=== PATIENT | male | born 1955 | race Two or more races ===

== ENCOUNTER 2021-06-19 10:14 | Outpatient (REF) | payer MEDICARE, OTHER, SELFPAY ==
[2021-06-19 10:38] LABS: MANUAL DIFF FLAG NO
[2021-06-19 10:54] LABS: Basophils Absolute Auto 0.1 X10*3/uL (0.0-0.2); Basophils Percent Auto 0.6 % (0-2); Eosinophils Absolute Auto 1.6 X10*3/uL (0.0-0.4); Eosinophils Percent Auto 19.2 % (0-4); Hematocrit 43.9 % (42.0-52.0); Hemoglobin 14.3 g/dl (14.0-18.0); Imm Gran Abs Auto 0.02 X10*3/uL (0.00-0.03); Imm Gran Pct Auto 0.2 % (0.0-0.4); Lymphocytes Absolute Auto 2.4 X10*3/uL (1.2-4.9); Lymphocytes Percent Auto 28.7 % (20-40); Mean Corpuscular HGB Conc 32.6 g/dl (31.0-36.0); Mean Corpuscular Hemoglobin 28.9 pg (27.0-33.0); Mean Corpuscular Volume 88.7 fL (80.0-98.0); Mean Platelet Volume 10.9 fL (9.4-12.4); Monocytes Absolute Auto 0.6 X10*3/uL (0.1-1.2); Monocytes Percent Auto 7.5 % (2-11); Neutrophils Absolute Auto 3.7 x10*3/uL (2.0-8.3); Neutrophils Percent Auto 43.8 % (45-73); Platelet Count 208 X10*3/uL (160-400); Red Blood Count 4.95 X10*6/uL (4.60-5.80); Red Cell Distribution Width 12.4 % (11.0-16.0); White Blood Count 8.4 X10*3/uL (4.8-10.8)
[2021-06-19 11:19] LABS: Estimated Average Glucose 137 mg/dL; Hemoglobin A1c % 6.4 %
[2021-06-19 11:26] LABS: Alanine Aminotransferase 12 U/L (0-40); Albumin Level 4.3 g/dL (3.5-5.0); Alkaline Phosphatase 58 U/L (39-117); Anion Gap 12 (12-20); Aspartate Amino Transferase 16 U/L (5-37); Bilirubin Total 0.9 mg/dL (0.0-1.0); Blood Urea Nitrogen 15 mg/dL (9-16); Calcium 9.7 mg/dL (8.4-10.2); Carbon Dioxide 27 mmol/L (22-29); Chloride 106 mmol/L (96-108); Cholesterol 118 mg/dL; Estimated Glomerular Filt Rate 56; Glucose Fasting 141 mg/dL (60-99); HDL Cholesterol 36 mg/dL; LDL Cholesterol Calculated 68 mg/dl; Potassium 4.7 mmol/L (3.3-5.1); Sodium 140 mmol/L (135-145); Total Protein 7.3 g/dL (6.5-8.0); Triglycerides 72 mg/dL
[2021-06-19 11:37] LABS: Prostate Specific Antigen Scr 0.81 ng/mL (<0.05-4.0)
[2021-06-19 11:44] LABS: Creatinine Urine 155.97 mg/dL; Microalbum/Creatinine Ratio Ur 3.8 ug/mg cr
== END 2021-06-19 10:15 | disposition home or self-care (01) ==
LOC: HO.LAB 10:14
PROVIDERS: PCP Nurse Practitioner Family; Visit Provider Nurse Practitioner Family
DX: E11.9 Type 2 diabetes mellitus without complications (principal); E78.5 Hyperlipidemia, unspecified; I10 Essential (primary) hypertension; E78.00 Pure hypercholesterolemia, unspecified; Z76.89 Persons encountering health services in other specified circumstances; Z12.5 Encounter for screening for malignant neoplasm of prostate
CPT/HCPCS: 36415; 80053; 80061; 82043; 83036; 84153; 85025

== ENCOUNTER 2022-03-23 09:07 | Outpatient (REF) | payer MEDICARE, OTHER, SELFPAY ==
[2022-03-23 11:15] LABS: Alanine Aminotransferase 15 U/L (0-40); Albumin Level 4.3 g/dL (3.5-5.0); Alkaline Phosphatase 56 U/L (39-117); Anion Gap 12 (12-20); Aspartate Amino Transferase 19 U/L (5-37); Blood Urea Nitrogen 22 mg/dL (9-16); Calcium 9.2 mg/dL (8.4-10.2); Carbon Dioxide 28 mmol/L (22-29); Chloride 105 mmol/L (96-108); Cholesterol 159 mg/dL; Estimated Glomerular Filt Rate > 60; Glucose Fasting 134 mg/dL (60-99); HDL Cholesterol 37 mg/dL; LDL Cholesterol Calculated 97 mg/dl; Potassium 4.2 mmol/L (3.3-5.1); Sodium 141 mmol/L (135-145); Total Protein 7.1 g/dL (6.5-8.0); Triglycerides 125 mg/dL
[2022-03-23 11:19] LABS: Microalbum/Creatinine Ratio Ur 5.6 ug/mg cr
[2022-03-23 11:20] LABS: Vitamin D 25-OH Total 18.7 ng/mL (>30)
== END 2022-03-23 09:08 | disposition home or self-care (01) ==
LOC: HO.LAB 09:07
PROVIDERS: PCP Internal Medicine; Visit Provider Internal Medicine
DX: E11.9 Type 2 diabetes mellitus without complications (principal); E78.5 Hyperlipidemia, unspecified; E55.9 Vitamin D deficiency, unspecified
CPT/HCPCS: 36415; 80053; 80061; 82043; 82306

== ENCOUNTER 2022-08-10 09:22 | Outpatient (REF) | payer MEDICARE, OTHER, SELFPAY ==
[2022-08-10 10:27] LABS: Microalbumin Urine < 5.0 mg/L
[2022-08-10 11:58] LABS: Alanine Aminotransferase 9 U/L (0-40); Albumin Level 4.2 g/dL (3.5-5.0); Alkaline Phosphatase 48 U/L (39-117); Anion Gap 10 (12-20); Aspartate Amino Transferase 15 U/L (5-37); Bilirubin Total 0.9 mg/dL (0.0-1.0); Blood Urea Nitrogen 17 mg/dL (9-16); Calcium 9.6 mg/dL (8.4-10.2); Carbon Dioxide 28 mmol/L (22-29); Chloride 106 mmol/L (96-108); Cholesterol 131 mg/dL; Estimated Glomerular Filt Rate 58; Glucose Fasting 126 mg/dL (60-99); HDL Cholesterol 38 mg/dL; LDL Cholesterol Calculated 79 mg/dl; Potassium 4.1 mmol/L (3.3-5.1); Sodium 140 mmol/L (135-145); Total Protein 7.4 g/dL (6.5-8.0); Triglycerides 72 mg/dL
[2022-08-10 12:19] LABS: Vitamin D 25-OH Total 37.2 ng/mL (>30)
== END 2022-08-10 09:23 | disposition home or self-care (01) ==
LOC: HO.LAB 09:22
PROVIDERS: PCP Internal Medicine; Visit Provider Internal Medicine
DX: E78.5 Hyperlipidemia, unspecified (principal); E11.9 Type 2 diabetes mellitus without complications; E55.9 Vitamin D deficiency, unspecified
CPT/HCPCS: 36415; 80053; 80061; 82043; 82306

== ENCOUNTER 2022-08-26 09:46 | Outpatient (AMB) | payer MEDICARE, SELFPAY ==
[2022-08-26 09:52] VITALS: BP 128/70; BMI 28.3
--- NOTE | 2022-08-26 09:52 | MHC.PC.OV ---
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: No Accompanied by: Spouse Allergies Penicillins Allergy (Intermediate, Verified 08/26/22 10:01) Diarrhea, itchy, red spots atorvastatin Adverse Reaction (Severe, Verified 08/26/22 10:01) pain Medication List - Last Reconciled 08/26/22 by Darcy Mike MD blood sugar diagnostic (FreeStyle Lite Strips) Use 1 test strip once a day cholecalciferol (vitamin D3) 50 mcg PO DAILY 90 days lancets (FreeStyle Lancets) Use 1 lancet once a day lisinopril 20 mg PO DAILY 90 days metformin 1,000 mg PO BID 90 days omeprazole 20 mg PO DAILY 90 days simvastatin 10 mg PO BEDTIME 90 days tamsulosin 0.4 mg PO DAILY 90 days Tobacco use date assessed: 04/08/22 Fall risk assessment: 1 Fall in past year Last assessed Fall Risk: 08/26/22 Dental Screening Dental Screen Date: 08/26/22 Did you have a dental visit in the last 12 months?: Yes Did you have a dental problem in the last 6 months where you did not have access to dental care?: No Was dental information given to patient?: Patient has dentist HPI HPI Comments History of Present Illness Details This is a 66-year-old male with diabetes mellitus type 2, hypertension, hyperlipidemia, GERD that comes today accompanied by female partner for follow-up on his conditions. A1c within goal. Blood pressure within goal. LDL has improved and is very close to goal. GERD still present with omeprazole and this is why I will change it to pantoprazole. No chest pain or shortness of breath. Diabetic eye exam was few months ago in [place]. PFSH Surgical History Hx of inguinal hernia surgery Family History Father Hypertension Diabetes mellitus Renal failure (ARF), acute on chronic Mother Myocardial infarction Social History Housing: House Alcohol intake: current Alcohol intake frequency: holidays/special occasions only Alcohol type: beer Patient Tobacco Use Status: Former Tobacco user Tobacco use type: Cigarette e-Cigarette/Vaping Use: Never Used Second Hand Smoke Exposure: No service: Yes Current occupational status: retired Cognitive needs: No Hearing needs: No Vision needs: Yes (reading glasses) Questionnaire Thrive Questionnaire Date Thrive assessed: 04/08/22 MJ-7 AMB Questionnaire MJ-7 Date MJ - 7 assessed: 04/08/22 Source: Developed by Drs. Sandor Bowling, Saundra Nye, Petar Larry and colleagues, with an educational damian from [employer]. Review of Systems Const All systems reviewed & are unremarkable except as noted in HPI and below Eyes Reports no additional complaints, Denies change in vision and Denies other visual disturbances Card Denies chest pain at rest, Denies chest pain with activity, Denies edema, Denies irregular heart rhythm, Denies claudication, Denies dyspnea, Denies dyspnea on exertion, Denies orthopnea, Denies paroxysmal nocturnal dyspnea and Denies slow heart rate Resp Denies cough, Denies dyspnea and Denies dyspnea on exertion GI Denies abdominal pain, Denies change in bowel habits, Denies excessive flatus, Denies nausea and Denies vomiting Denies urinary hesitancy, Denies urinary incontinence and Denies urinary urgency Musc Denies abnormal gait, Denies atrophy, Denies deformity and Denies limited range of motion Skin/Breast Denies bleeding lesions, Denies changing lesions and Denies rash Neuro Denies abnormal gait and Denies lack of coordination Physical exam (Primary Care) Vital Signs: Last Vital Signs BP 128/70 08/26/22 09:52 BMI result Body Mass Index 28.3 Tobacco/Smoking Status: Tobacco use Status Tobacco use date assessed 04/08/22 08/26/22 09:54 Patient Tobacco Use Status Former Tobacco user 08/26/22 09:54 Tobacco use type Cigarette 08/26/22 09:54 e-Cigarette/Vaping Use Never Used 08/26/22 09:54 Thrive Assessment: Date of Thrive Assessment Date Thrive assessed 04/08/22 08/26/22 09:54 Eyes General: appearance normal, both eyes and all related structures Eyelids: Yes eyelids normal Conjunctivae: conjunctivae normal Neck Neck: Yes normal visual inspection and Yes supple Resp Effort & Inspection: normal respiratory effort Auscultation: clear to auscultation bilaterally Cardio Jugular venous distension: no JVD Rate: regular rate Rhythm: regular rhythm Heart sounds: S1 normal heart sound present and S2 normal heart sound present Extrem General: Yes full ROM Results AMB Hemoglobin A1c AMB Hemoglobin A1c 6.1 % Last Edit by VALDO Santo on 08/26/22 10:03 Assessment and Plan Assessment & Plan (1) Diabetes type 2, controlled: Onset Date: ~2005 Code(s): E11.9 - Type 2 diabetes mellitus without complications Plan: Continue metformin. A1c goal is equal or less than 7%. (2) Hyperlipidemia: Code(s): E78.5 - Hyperlipidemia, unspecified Plan: Continue statins. LDL goal is less than 70. (3) GERD (gastroesophageal reflux disease): Code(s): K21.9 - Gastro-esophageal reflux disease without esophagitis Plan: Discontinue omeprazole. Start pantoprazole. (4) Essential (primary) hypertension: Code(s): I10 - Essential (primary) hypertension Plan: Continue lisinopril. Blood pressure goal is equal or less than 130/80. Orders: Orders Comprehensive [place]. Panel Fast 4 Months E11.9 - Type 2 diabetes mellitus without complications Lipid Panel 4 Months E78.5 - Hyperlipidemia, unspecified Microalbumin, Random (w Creat) 4 Months E11.9 - Type 2 diabetes mellitus without complications Vitamin D 25-OH Total 4 Months E55.9 - Vitamin D deficiency, unspecified AMB Hemoglobin A1c Today E11.9 - Type 2 diabetes mellitus without complications Medications: New pantoprazole 40 mg PO DAILY 90 days 90 tabs 1RF K21.9 - Gastro-esophageal reflux disease without esophagitis Ventolin HFA 90 mcg/actuation (albuterol sulfate) 2 puffs inhalation Q6H 30 days PRN 18 grams 2RF shortness of breath or wheezing NS Refilled lisinopril 20 mg PO DAILY 90 days 90 tabs 3RF I10 - Essential (primary) hypertension cholecalciferol (vitamin D3) 50 mcg PO DAILY 90 days 90 caps 1RF metformin 1,000 mg PO BID 90 days 180 tabs 3RF E11.9 - Type 2 diabetes mellitus without complications simvastatin 10 mg PO BEDTIME 90 days 90 tabs 1RF E78.5 - Hyperlipidemia, unspecified tamsulosin 0.4 mg PO DAILY 90 days 90 caps 1RF N40.1 - Benign prostatic hyperplasia with lower urinary tract symptoms, R35.1 - Nocturia Discontinued omeprazole Discontinued Reason: Patient Completed Course 20 mg PO DAILY 90 days 90 caps 0RF K21.9 - Gastro-esophageal reflux disease without esophagitis Coding Level of Care Code Est Pt Level 4 (71172) Diagnoses Diabetes type 2, controlled E11.9 Hyperlipidemia E78.5 GERD (gastroesophageal reflux disease) K21.9 Essential (primary) hypertension I10 Time Spent (min) 21
== END 2022-08-26 10:13 | disposition home or self-care (01) ==
PROVIDERS: Visit Provider Internal Medicine
DX: E11.9 Type 2 diabetes mellitus without complications (principal); E78.5 Hyperlipidemia, unspecified; K21.9 Gastro-esophageal reflux disease without esophagitis; I10 Essential (primary) hypertension
CPT/HCPCS: 83036; 99214

== ENCOUNTER 2022-11-30 09:29 | Outpatient (REF) | payer MEDICARE, OTHER, SELFPAY ==
[2022-11-30 12:10] LABS: Creatinine Urine 69.51 mg/dL; Microalbumin Urine < 5.0 mg/L
[2022-11-30 12:53] LABS: Alanine Aminotransferase 14 U/L (0-40); Albumin Level 4.3 g/dL (3.5-5.0); Alkaline Phosphatase 48 U/L (39-117); Anion Gap 13 (12-20); Aspartate Amino Transferase 17 U/L (5-37); Bilirubin Total 0.7 mg/dL (0.0-1.0); Blood Urea Nitrogen 16 mg/dL (9-16); Calcium 9.7 mg/dL (8.4-10.2); Carbon Dioxide 28 mmol/L (22-29); Chloride 105 mmol/L (96-108); Cholesterol 127 mg/dL (<200); Estimated Glomerular Filt Rate > 60; Glucose Fasting 127 mg/dL (60-99); HDL Cholesterol 37 mg/dL (>40); LDL Cholesterol Calculated 71 mg/dL (<100); Potassium 4.6 mmol/L (3.3-5.1); Sodium 141 mmol/L (135-145); Total Protein 7.6 g/dL (6.5-8.0); Triglycerides 95 mg/dL (<150)
== END 2022-11-30 09:30 | disposition home or self-care (01) ==
LOC: HO.LAB 09:29
PROVIDERS: PCP Internal Medicine; Visit Provider Internal Medicine
DX: E11.9 Type 2 diabetes mellitus without complications (principal); E55.9 Vitamin D deficiency, unspecified; E78.5 Hyperlipidemia, unspecified
CPT/HCPCS: 36415; 80053; 80061; 82043; 82306; 82570

== ENCOUNTER 2022-12-21 07:11 | Outpatient (AMB) | payer MEDICARE, SELFPAY ==
--- NOTE | 2022-12-21 07:27 | MHC.PC.OV ---
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: No Accompanied by: Significant Other Allergies Penicillins Allergy (Intermediate, Verified 12/21/22 07:41) Diarrhea, itchy, red spots atorvastatin Adverse Reaction (Severe, Verified 12/21/22 07:41) pain Medication List - Last Reconciled 12/21/22 by Darcy Mike MD blood sugar diagnostic (FreeStyle Lite Strips) Use 1 test strip once a day cholecalciferol (vitamin D3) 50 mcg PO DAILY 90 days lancets (FreeStyle Lancets) Use 1 lancet once a day lisinopril 20 mg PO DAILY 90 days metformin 1,000 mg PO BID 90 days pantoprazole 40 mg PO DAILY 90 days simvastatin 10 mg PO BEDTIME 90 days tamsulosin 0.4 mg PO DAILY 90 days Tobacco use date assessed: 04/08/22 Fall risk assessment: 1 Fall in past year Last assessed Fall Risk: 12/21/22 Dental Screening Dental Screen Date: 12/21/22 Did you have a dental visit in the last 12 months?: No Did you have a dental problem in the last 6 months where you did not have access to dental care?: No Was dental information given to patient?: Patient has dentist HPI HPI Comments History of Present Illness Details This is a 67-year-old male with diabetes mellitus type 2 that comes today accompanied by female partner for his physical exam. A1c within goal. LDL close to goal. Last diabetic eye exam was at [facility] in 12/09/2022 which revealed no diabetic retinopathy. Last colonoscopy was [facility] 3 years ago and was normal and next colonoscopy should be 2029. Complains of diffuse joint pain and daily headaches in frontal area with no neurological deficit does started about 3 months ago. No fever or rash. Also has right leg pain that started few weeks ago and ultrasound will be done to rule out DVT. Also has history of right inguinal hernia repair and feel a right inguinal lump with pain. [facility] Surgical History (Updated 12/21/22 @ 07:43 by Darcy Mike MD) H/O colonoscopy Hx of inguinal hernia surgery Family History Father Hypertension Diabetes mellitus Renal failure (ARF), acute on chronic Mother Myocardial infarction Social History Housing: House Alcohol intake: current Alcohol intake frequency: holidays/special occasions only Alcohol type: beer Patient Tobacco Use Status: Former Tobacco user Tobacco use type: Cigarette e-Cigarette/Vaping Use: Never Used Second Hand Smoke Exposure: No service: Yes Current occupational status: retired Cognitive needs: No Hearing needs: No Vision needs: Yes (reading glasses) Questionnaire Thrive Questionnaire Date Thrive assessed: 04/08/22 MJ-7 AMB Questionnaire MJ-7 Date MJ - 7 assessed: 04/08/22 Source: Developed by Drs. Sandor Bowling, Saundra Nye, Petar Larry and colleagues, with an educational damian from [employer]. Review of Systems Const All systems reviewed & are unremarkable except as noted in HPI and below Reports headache(s) Eyes Reports no additional complaints, Denies change in vision and Denies other visual disturbances ENT Reports headache(s) Card Denies chest pain at rest, Denies chest pain with activity, Denies edema, Denies irregular heart rhythm, Denies claudication, Denies dyspnea, Denies dyspnea on exertion, Denies orthopnea, Denies paroxysmal nocturnal dyspnea and Denies slow heart rate Resp Denies cough, Denies dyspnea and Denies dyspnea on exertion GI Reports abdominal pain, Denies change in bowel habits, Denies excessive flatus, Denies nausea and Denies vomiting Denies urinary hesitancy, Denies urinary incontinence and Denies urinary urgency Musc Denies abnormal gait, Denies atrophy, Denies deformity, Reports arthralgias and Denies limited range of motion Skin/Breast Denies bleeding lesions, Denies changing lesions and Denies rash Neuro Denies abnormal gait, Denies behavioral changes, Denies confusion, Reports headache(s) and Denies lack of coordination Psych Denies behavioral changes and Denies confusion Physical exam (Primary Care) Vital Signs: Last Vital Signs BP 132/80 12/21/22 07:28 BMI result Body Mass Index 26.8 Tobacco/Smoking Status: Tobacco use Status Tobacco use date assessed 04/08/22 12/21/22 07:33 Patient Tobacco Use Status Former Tobacco user 12/21/22 07:33 Tobacco use type Cigarette 12/21/22 07:33 e-Cigarette/Vaping Use Never Used 12/21/22 07:33 Thrive Assessment: Date of Thrive Assessment Date Thrive assessed 04/08/22 12/21/22 07:33 Const General: No confusion Orientation/consciousness: patient oriented x3 and No confusion HENMT Head: Yes normal to inspection, Yes normocephalic and Yes atraumatic Ears: external ears normal Eyes General: appearance normal, both eyes and all related structures Eyelids: Yes eyelids normal Conjunctivae: conjunctivae normal Neck Neck: Yes normal visual inspection and Yes supple Resp Effort & Inspection: normal respiratory effort Auscultation: clear to auscultation bilaterally Cardio Jugular venous distension: no JVD Rate: regular rate Rhythm: regular rhythm Heart sounds: S1 normal heart sound present and S2 normal heart sound present GI Inspection: Yes normal to inspection Palpation (GI): Soft to palpation, nontender and Hernia present indirect inguinal on the right Auscultation: normal bowel sounds Skin General skin exam: no rashes or lesions noted Neuro General: patient oriented x3, no focal motor deficits and No confusion Extrem General: Yes full ROM Psych Appearance: grossly normal Office Procedures Flu Questionnaire Does the patient have a severe egg allergy?: No Results AMB Hemoglobin A1c AMB Hemoglobin A1c 6.0 % Last Edit by VALDO Santo on 12/21/22 07:44 Immunizations flu vacc [id number] 6mos up(PF) 60 mcg(15 mcgx4)/0.5 mL IM syringe Performing Provider: Darcy Mike MD [facility] [place] Documented (not given) by: VALDO Santo on 12/21/22 07:43 Reason Not Given: Patient Refused Results Reviewed Results Reviewed: Laboratory Last Values Hgb A1c (Clinic) 6.0 % (4.0-6.0) 12/21/22 07:33 Assessment and Plan Assessment & Plan (1) Physical exam: Code(s): Z00.00 - Encounter for general adult medical examination without abnormal findings Plan: Repeat in a year (2) Diabetes type 2, controlled: Onset Date: ~2005 Code(s): E11.9 - Type 2 diabetes mellitus without complications Plan: Continue metformin. A1c goal is equal or less than 7%. Orders: Orders AMB Hemoglobin A1c Today E11.9 - Type 2 diabetes mellitus without complications Influenza [id number] Immunization Today E11.9 - Type 2 diabetes mellitus without complications Vitamin D 25-OH Total 4 Months E55.9 - Vitamin D deficiency, unspecified US venous duplex LE RT Today M79.604 - Pain in right leg US abdomen complete Today K40.90 - Unilateral inguinal hernia, without obstruction or gangrene, not specified as recurrent Lipid Panel 4 Months E78.5 - Hyperlipidemia, unspecified Microalbumin, Random (w Creat) 4 Months E11.9 - Type 2 diabetes mellitus without complications Comprehensive [place]. Panel Fast 4 Months Z00.00 - Encounter for general adult medical examination without abnormal findings Referrals Rheumatology Referral M25.50 - Pain in unspecified joint Neurology Referral R51.9 - Headache, unspecified Coding Level of Care Code Est Pt Prev Care >65y(54326) Diagnoses Physical exam Z00.00 Diabetes type 2, controlled E11.9 Time Spent (min) 36
[2022-12-21 07:28] VITALS: BP 132/80; BMI 26.8
== END 2022-12-21 08:06 | disposition home or self-care (01) ==
PROVIDERS: Visit Provider Internal Medicine
DX: Z00.00 Encounter for general adult medical examination without abnormal findings (principal); E11.9 Type 2 diabetes mellitus without complications
CPT/HCPCS: 83036; 99397

== ENCOUNTER 2023-01-06 10:47 | Outpatient (AMB) | payer MEDICARE, SELFPAY ==
[2023-01-06 11:03] VITALS: BP 122/78; PULSE 74; TEMP 36.3; O2SAT 97; BMI 27.2
--- NOTE | 2023-01-06 11:03 | A.OFFVIS_ITS ---
Intake Vital Signs 01/06/23 11:03 Height 5 ft 8 in Weight 179 lb 3.773 oz BMI 27.2 BP 122/78 Blood Pressure Location Rt brachial Position Sitting Pulse 74 Pulse Source Pulse Oximeter Temp 97.3 F Temp Source Skin Pulse Oximetry (%) 97 Oxygen Delivery Method Room Air Intake Visit Reasons: Joint Pain Intake Note: New patient internally referred for joint pain. 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 C/o pain in right leg, pain radiates to hip and knee. Reports falling from the bed approx 8-10 weeks ago, pain started around the same time. Also c/o occasional headaches Or First Assist Registered Nurse Required: No Accompanied by: Significant Other Allergies Penicillins Allergy (Intermediate, Verified 01/06/23 11:06) Diarrhea, itchy, red spots atorvastatin Adverse Reaction (Severe, Verified 01/06/23 11:06) pain HPI HPI Comments History of Present Illness Details Mr. Daniel is a 67-year-old male with medical history of diabetes mellitus type 2 that comes today accompanied by female partner for evaluation of right knee pain. His right leg pain started few weeks ago after the activity of bending down and picking up leaves outside. His primary care has ordered an ultrasound will be done to rule out DVT. Also has history of right inguinal hernia repair and feel a right inguinal lump with pain. Patient all does also describe what seems like sciatica pain on his right gluteus pj. He denies red, warm swollen joints Patient denies Raynaud's phenomenon, butterfly rash on face or other rashes; denies photosensitivity - getting sick or developing a rash from being out in the sun; denies blood or froth in urine; patient denies hx of SOB, chest pain. Patient denies hx of Carditis or Pleuritis. Denies fevers, excessive fatigue, unexplained weight-loss or weight-gain, Denies: thinning hair or hair loss, hx of rashes; Denies: dry, itchy eyes, red burning eyes needing steroids to treat; dry mouth, mouth sores or ulcers; nose bleed; ringing in the ear, Denies abdominal pain, blood or mucous in stool; nausea, vomiting and diarrhea , difficulty swallowing, heartburn. Denies morning stiffness lasting more than 20 mins. Last colonoscopy was [facility] 3 years ago and was normal and next colonoscopy should be 2030. [facility] Medical History (Updated 01/06/23 @ 15:35 by Mariam Royal [facility]) Sciatica, right side Right knee pain Left knee pain Surgical History H/O colonoscopy Hx of inguinal hernia surgery Family History Father Hypertension Diabetes mellitus Renal failure (ARF), acute on chronic Mother Myocardial infarction Housing: House Alcohol intake: current Alcohol intake frequency: holidays/special occasions only Alcohol type: beer Patient Tobacco Use Status: Former Tobacco user Tobacco use type: Cigarette e-Cigarette/Vaping Use: Never Used Second Hand Smoke Exposure: No service: Yes Current occupational status: retired Cognitive needs: No Hearing needs: No Vision needs: Yes (reading glasses) Review of Systems Const All systems reviewed & are unremarkable except as noted in HPI and below Physical Exam Vital Signs: Last Vital Signs Temp 97.3 F 01/06/23 11:03 Pulse 74 01/06/23 11:03 BP 122/78 01/06/23 11:03 Pulse Ox 97 01/06/23 11:03 Oxygen Delivery Method Room Air 01/06/23 11:03 BMI result Body Mass Index 27.2 APPEARANCE: Patient in no acute distress EYES no redness, pupils equal and reactive to light, eyelids normal EARS:? External ear normal, canal clear and tympanic membrane normal. NOSE/SINUS:? Airflow through both nares, no nasal discharge, no bleeding THROAT:? Oral mucosa moist, no ulcerations NECK:? No thyromegaly or masses, no adenopathy, trachea midline. HEART:? Regulrar rhythm, S1-S2 heard, no murmurs, rubs or gallops. LUNG:? Clear to percussion and auscultation ABD:? Normal bowel sounds, no organomegaly, masses or tenderness. EXTREMITIES:? No edema, no calf tenderness, normal peripheral pulses. NEURO:? Oriented and alert x3.? No focal weakness.? Reflexes symmetric.? Gait normal. SKIN:? There are no skin lesions evident. No objective signs of Raynaud's phenomenon. JOINT EXAM: Cervical Spine:.? Full range of motion without pain; no tenderness. Thoracic Spine:.? No scoliosis.? No tenderness on palpation. Lumbar Spine:.? Alignment normal.? Full range of motion without pain, no tenderness. Chest Wall:.? No tenderness, swelling, increased warmth or erythema. Hands:.? Normal pain-free range of motion without tenderness, swelling, increased warmth or erythema. 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 Wrists:.? Normal pain-free range of motion without tenderness, swelling, increased warmth or erythema. Elbows:. Normal pain-free range of motion without tenderness, swelling, increased warmth or erythema. Shoulders:.?? Full range of motion without pain. No tenderness, weakness, swelling, increased warmth or erythema. Hips:.? Full range of motion without pain. Hip bursa:.? No tenderness. Mild tenderness to right Gluteus pj Knees:.?? Normal pain-free range of motion without tenderness, swelling, increased warmth or erythema.? There is no effusion or crepitation. Mild ten derness to lateral right knee Ankles:.? Normal pain-free range of motion without tenderness, swelling, increased warmth or erythema. Feet:.? Normal pain-free range of motion without tenderness, swelling, increased warmth or erythema. Assessment & Plan Assessment & Plan (1) Right knee pain: Code(s): M25.561 - Pain in right knee Qualifiers: Chronicity: chronic Qualified Code(s): M25.561 - Pain in right knee; G89.29 - Other chronic pain (2) Sciatica, right side: Code(s): M54.31 - Sciatica, right side Plan #Right knee pain: Mr. Daniel 67-year-old male here for evaluation of right knee pain. It does not appear at this time that his knee pain is caused by an inflammatory or autoimmune pathology. It appears that it may be a mild injury sustained while cleaning up the yard. The pain is localized to the lateral right knee and is more pronounced at the proximal fibula/head. Patient denies swelling warmth or redness to the joint. I will order x-rays to assessed. He should also follow through with the ultrasound that was ordered by his PCP to rule out DVT. I will also order labs to check for inflammatory markers and elements such as elevated uric acid which is doubtful at this time. #Right Sciatica: There is also tenderness to right gluteal muscle extending from the lower back. Given that there is tenderness on the right gluteus muscle, the sciatica could also be responsible to for the pain at this lateral side of the right knee down to the hayden. Once it is determined that there is no fracture or injury to the knee, I think patient will benefit from physical therapy to strengthen his lower body. The patient agrees with this plan. Orders: Orders C Reactive Protein Today M25.561 - Pain in right knee Erythrocyte Sedimentation Rate Today M25.561 - Pain in right knee Complete Blood Count no Diff Today M25.561 - Pain in right knee Rheumatoid Factor Today M25.561 - Pain in right knee Uric Acid Today M25.561 - Pain in right knee Cyclic Citrullinated Peptide Today M25.561 - Pain in right knee XR knee RT 3V Today M25.561 - Pain in right knee Coding Level of Care Code Est Pt Level 3 (21917) Diagnoses Chronic pain of right knee M25.561; G89.29 Chronicity: chronic Sciatica, right side M54.31
== END 2023-01-06 11:53 | disposition home or self-care (01) ==
PROVIDERS: PCP Internal Medicine; Visit Provider Nurse Practitioner Family
DX: M25.561 Pain in right knee (principal); G89.29 Other chronic pain; M54.31 Sciatica, right side
CPT/HCPCS: 99213

== ENCOUNTER 2023-01-06 10:47 | Outpatient (REF) | payer MEDICARE, OTHER, SELFPAY ==
--- NOTE | ~2023-01-06 | XR_ITS ---
EXAMINATION: XR KNEE, RIGHT CLINICAL INFORMATION: Pain COMPARISON: None available. TECHNIQUE: Three views of the right knee. FINDINGS: No acute visible fracture or dislocation. Multicompartment arthritic changes. Mild to moderate narrowing of the medial femorotibial compartment. Enthesopathy at the quadriceps tendon insertion site. Joint spaces and alignment are otherwise maintained. Trace knee joint effusion. Soft tissues are unremarkable. Atherosclerotic calcifications are noted. XR/XR knee RT 3V IMPRESSION: 1. No acute visible fracture or dislocation. 2. Multicompartment arthritic changes with mild to moderate narrowing of the medial femorotibial compartment. 3. Trace knee joint effusion.
== END 2023-01-06 10:48 | disposition home or self-care (01) ==
LOC: HO.XRAY 10:47
PROVIDERS: PCP Internal Medicine; Visit Provider Nurse Practitioner Family
DX: M25.561 Pain in right knee (principal); M54.31 Sciatica, right side; G89.29 Other chronic pain
CPT/HCPCS: 73562; 99212

== ENCOUNTER 2023-01-06 12:03 | Outpatient (REF) | payer MEDICARE, OTHER, SELFPAY ==
[2023-01-06 12:42] LABS: Hematocrit 43.8 % (42.0-52.0); Hemoglobin 14.4 g/dl (14.0-18.0); Mean Corpuscular HGB Conc 32.9 g/dl (31.0-36.0); Mean Corpuscular Hemoglobin 29.2 pg (27.0-33.0); Mean Corpuscular Volume 88.8 fL (80.0-98.0); Mean Platelet Volume 10.8 fL (9.4-12.4); Platelet Count 237 X10*3/uL (160-400); Red Blood Count 4.93 X10*6/uL (4.60-5.80); Red Cell Distribution Width 12.4 % (11.0-16.0); White Blood Count 6.3 X10*3/uL (4.8-10.8)
[2023-01-06 13:00] LABS: Rheumatoid Factor < 13.0 IU/mL (<15.0)
[2023-01-06 13:01] LABS: C Reactive Protein < 0.10 mg/dL (< or = 0.50); Uric Acid 6.3 mg/dL (3.4-7.0)
[2023-01-06 13:27] LABS: Erythrocyte Sedimentation Rate 8 MM/HR (0-15)
[2023-01-08 13:08] LABS: Cyclic Citrullinated Peptide <16 UNITS
== END 2023-01-06 12:04 | disposition home or self-care (01) ==
LOC: HO.10HDL 12:03
PROVIDERS: Visit Provider Nurse Practitioner Family
DX: M25.561 Pain in right knee (principal)
CPT/HCPCS: 36415; 84550; 85027; 85652; 86140; 86200; 86431

== ENCOUNTER 2023-01-19 10:52 | Outpatient (AMB) | payer MEDICARE, SELFPAY ==
[2023-01-19 11:00] VITALS: BP 102/54; PULSE 69; TEMP 36.1; O2SAT 97; BMI 26.9
--- NOTE | 2023-01-19 11:00 | A.OFFVIS_ITS ---
Intake Vital Signs 01/19/23 11:00 Height 5 ft 8 in Weight 176 lb 12.972 oz BMI 26.9 BP 102/54 L Blood Pressure Location Rt brachial Position Sitting Pulse 69 Pulse Source Pulse Oximeter Temp 97 F Temp Source Skin Pulse Oximetry (%) 97 Oxygen Delivery Method Room Air Intake Visit Reasons: Joint Pain Intake Note: Patient presents today to follow up on test results and joint pain. Treatment Counselor Required: No Accompanied by: Self / Same As Patient Allergies Penicillins Allergy (Intermediate, Verified 01/19/23 11:07) Diarrhea, itchy, red spots atorvastatin Adverse Reaction (Severe, Verified 01/19/23 11:07) pain HPI HPI Comments History of Present Illness Details Mr. Daniel is here for follow-up to his evaluation for right knee pain. He reports that everything is all right. His pain is gone, his knee is fine. He reports no other concerns. His girlfriend states that he has had this over the years and it happens every now and then Prior Visit Mr. Daniel is a 67-year-old male with medical history of diabetes mellitus type 2 that comes today accompanied by female partner for evaluation of right knee pain. His right leg pain started few weeks ago after the activity of bending down and picking up leaves outside. His primary care has ordered an ultrasound will be done to rule out DVT. Also has history of right inguinal hernia repair and feel a right inguinal lump with pain. Patient all does also describe what seems like sciatica pain on his right gluteus pj. He denies red, warm swollen joints Patient denies Raynaud's phenomenon, butterfly rash on face or other rashes; denies photosensitivity - getting sick or developing a rash from being out in the sun; denies blood or froth in urine; patient denies hx of SOB, chest pain. Patient denies hx of Carditis or Pleuritis. Denies fevers, excessive fatigue, unexplained weight-loss or weight-gain, Denies: thinning hair or hair loss, hx of rashes; Denies: dry, itchy eyes, red burning eyes needing steroids to treat; dry mouth, mouth sores or ulcers; nose bleed; ringing in the ear, Denies abdominal pain, blood or mucous in stool; nausea, vomiting and diarrhea , difficulty swallowing, heartburn. Denies morning stiffness lasting more than 20 mins. Last colonoscopy was [facility] 3 years ago and was normal and next colonoscopy should be 2030. [facility] Medical History (Updated 01/06/23 @ 15:35 by JANUSZ Smyth) Sciatica, right side Right knee pain Left knee pain Surgical History H/O colonoscopy Hx of inguinal hernia surgery Family History Father Hypertension Diabetes mellitus Renal failure (ARF), acute on chronic Mother Myocardial infarction Social History Housing: House Alcohol intake: current Alcohol intake frequency: holidays/special occasions only Alcohol type: beer Patient Tobacco Use Status: Former Tobacco user Tobacco use type: Cigarette e-Cigarette/Vaping Use: Never Used Second Hand Smoke Exposure: No service: Yes Current occupational status: retired Cognitive needs: No Hearing needs: No Vision needs: Yes (reading glasses) Review of Systems Const All systems reviewed & are unremarkable except as noted in HPI and below Physical Exam Vital Signs: Last Vital Signs Temp 97 F 01/19/23 11:00 Pulse 69 01/19/23 11:00 BP 102/54 L 01/19/23 11:00 Pulse Ox 97 01/19/23 11:00 Oxygen Delivery Method Room Air 01/19/23 11:00 BMI result Body Mass Index 26.9 APPEARANCE: Patient in no acute distress EYES no redness, pupils equal and reactive to light, eyelids normal HEART:? Regulrar rhythm, S1-S2 heard, no murmurs, rubs or gallops. LUNG:? Clear to percussion and auscultation EXTREMITIES:? No edema, no calf tenderness, normal peripheral pulses. NEURO:? Oriented and alert x3.? No focal weakness.? Reflexes symmetric.? Gait normal. Results Reviewed Results Reviewed: Right knee x-ray with small joint Effusion otherwise unremarkable Lab work grossly normal Assessment & Plan Assessment & Plan (1) Right knee pain: Code(s): M25.561 - Pain in right knee Qualifiers: Chronicity: chronic Qualified Code(s): M25.561 - Pain in right knee; G89.29 - Other chronic pain (2) Sciatica, right side: Code(s): M54.31 - Sciatica, right side Plan #Right knee pain: Mr. Daniel 67-year-old male here for follow-up evaluation of right knee pain. Patient denies any pain today,his knee has improved His labs and diagnostics were unremarkable #Right Sciatica: I discussed with patient today that his intermittent knee pain is likely sciatic. There is still mild tenderness to right gluteal muscle extending from the lower back. Given that there is tenderness on the right g luteus muscle, the sciatica could also be responsible to for the pain at this lateral side of the right knee down to the hayden. I think patient will benefit from physical therapy to strengthen his lower body. The patient agrees with this plan. He will still contact physical therapy. Patient can follow-up as needed Coding Level of Care Code Est Pt Level 3 (17422) Diagnoses Chronic pain of right knee M25.561; G89.29 Chronicity: chronic Sciatica, right side M54.31
== END 2023-01-19 12:12 | disposition home or self-care (01) ==
PROVIDERS: PCP Internal Medicine; Visit Provider Nurse Practitioner Family
DX: M25.561 Pain in right knee (principal); G89.29 Other chronic pain; M54.31 Sciatica, right side
CPT/HCPCS: 99213

== ENCOUNTER → 2023-01-19 10:52 | Outpatient (BNVA) | payer MEDICARE, OTHER, SELFPAY | PROVIDERS: PCP Internal Medicine; Visit Provider Nurse Practitioner Family | DX: M25.561 Pain in right knee (principal); M54.31 Sciatica, right side; G89.29 Other chronic pain | CPT/HCPCS: 99212 ==

== ENCOUNTER 2023-03-02 08:29 | Outpatient (AMB) | payer MEDICARE, SELFPAY ==
[2023-03-02 08:33] VITALS: BP 128/64; PULSE 79; TEMP 36.5; O2SAT 98; BMI 25.9
--- NOTE | 2023-03-02 08:33 | MHC.OFFVIS ---
Intake Vital Signs 03/02/23 08:33 Height 5 ft 8 in Weight 170 lb 6.677 oz BMI 25.9 BP 128/64 Blood Pressure Location Rt brachial Position Sitting Pulse 79 Pulse Source Pulse Oximeter Temp 97.7 F Temp Source Skin Pulse Oximetry (%) 98 Oxygen Delivery Method Room Air Intake Visit Reasons: r leg pain and swelling Intake Note: Patient presents today for R leg pain and swelling. Still in pain in right hip; and from right knee down. Using tylenol and naproxen after being seen at [facility] ED, but does not help pain. Reports being in pain for approx 5 weeks, unable to eat or sleep at times due to pain. Clothing Man Required: No Accompanied by: Self / Same As Patient Allergies Penicillins Allergy (Intermediate, Verified 03/02/23 08:36) Diarrhea, itchy, red spots atorvastatin Adverse Reaction (Severe, Verified 03/02/23 08:36) pain HPI HPI Comments History of Present Illness Details Mr. Daniel is here for an urgent visit due to recurring pain to his lateral right leg, more pronunced laterally from the head of the fibula down to the ankle. He was clearing trash in the back yard and the pain recurred within a day after. He says there is no pain while sitting, but it bothers him during sleep and with walking and his foot feels numb. He rates it 8/10. Since last visit 01/19/2023, he has been to [facility] [place] (3 days later) and [facility], because of the pain. Ultra sound was done with no adverse findings per patient. He also has tenderness to the right glutes. Prior Visit Mr. Daniel is a 67-year-old male with medical history of diabetes mellitus type 2 that comes today accompanied by female partner for evaluation of right knee pain. His right leg pain started few weeks ago after the activity of bending down and picking up leaves outside. His primary care has ordered an ultrasound will be done to rule out DVT. Also has history of right inguinal hernia repair and feel a right inguinal lump with pain. Patient all does also describe what seems like sciatica pain on his right gluteus pj. He denies red, warm swollen joints Patient denies Raynaud's phenomenon, butterfly rash on face or other rashes; denies photosensitivity - getting sick or developing a rash from being out in the sun; denies blood or froth in urine; patient denies hx of SOB, chest pain. Patient denies hx of Carditis or Pleuritis. Denies fevers, excessive fatigue, unexplained weight-loss or weight-gain, Denies: thinning hair or hair loss, hx of rashes; Denies: dry, itchy eyes, red burning eyes needing steroids to treat; dry mouth, mouth sores or ulcers; nose bleed; ringing in the ear, Denies abdominal pain, blood or mucous in stool; nausea, vomiting and diarrhea , difficulty swallowing, heartburn. Denies morning stiffness lasting more than 20 mins. Last colonoscopy was [facility] 3 years ago and was normal and next colonoscopy should be 2030. [facility] Medical History (Updated 03/02/23 @ 09:12 [facility] Right leg paresthesias Sciatica, right side Right knee pain Left knee pain Surgical History H/O colonoscopy Hx of inguinal hernia surgery Family History Father Hypertension Diabetes mellitus Renal failure (ARF), acute on chronic Mother Myocardial infarction Social History Housing: House Alcohol intake: current Alcohol intake frequency: holidays/special occasions only Alcohol type: beer Patient Tobacco Use Status: Former Tobacco user Tobacco use type: Cigarette e-Cigarette/Vaping Use: Never Used Second Hand Smoke Exposure: No service: Yes Current occupational status: retired Cognitive needs: No Hearing needs: No Vision needs: Yes (reading glasses) Review of Systems Const All systems reviewed & are unremarkable except as noted in HPI and below Physical Exam Vital Signs: Last Vital Signs Temp 97.7 F 03/02/23 08:33 Pulse 79 03/02/23 08:33 BP 128/64 03/02/23 08:33 Pulse Ox 98 03/02/23 08:33 Oxygen Delivery Method Room Air 03/02/23 08:33 BMI result Body Mass Index 25.9 APPEARANCE: Patient in no acute distress EYES no redness, pupils equal and reactive to light, eyelids normal HEART:? Regulrar rhythm, S1-S2 heard, no murmurs, rubs or gallops. LUNG:? Clear to percussion and auscultation EXTREMITIES:? No edema, no calf tenderness, normal peripheral pulses. Right leg tenderness to fibula head, Fibula head pronounced NEURO:? Oriented and alert x3.? No focal weakness.? Reflexes symmetric.? Gait is antalgic. Assessment & Plan Assessment & Plan (1) Right knee pain: Code(s): M25.561 - Pain in right knee Qualifiers: Chronicity: chronic Qualified Code(s): M25.561 - Pain in right knee; G89.29 - Other chronic pain (2) Sciatica, right side: Code(s): M54.31 - Sciatica, right side (3) Right leg paresthesias: Code(s): R20.2 - Paresthesia of skin Plan #Right knee pain: Mr. Daniel 67-year-old male here for follow-up evaluation of right knee pain. He does have arthritis in the knee. Per xray there is no acute visible fracture or dislocation. There is multicompartment arthritic changes, mild to moderate narrowing of the medial femorotibial compartment. Enthesopathy at the quadriceps tendon insertion site. Joint spaces and alignment are otherwise maintained. Soft tissues are unremarkable. Atherosclerotic calcifications are noted. #Right Leg Sciatica/Paresthesias: I discussed with patient today that his intermittent knee pain is likely sciatic and may have been brought on by overuse. On PE, there is mild tenderness to right gluteus muscle radiating from the lower back. Given that there is tenderness on the right gluteus muscle, the sciatica could also be responsible to for the pain at this lateral side of the right knee down to the hayden. I still think patient will benefit from physical therapy as prescribed at last visit. I will also do an EMG study to assess the nerve conduction on the right leg. The patient agrees with this plan. He had put a hold on PT due to some personal problems that resulted in him having to leave his home. He now resides in [place] with this sister so it will be a challenge to get going with PT. For the time being, I will prescribe him Lyrica 50mg at bedtime that can help with sleep. I will also consider a corticosteroid injection at next visit if things have not improved. I did discussed with patient that recurrence can be permanent and treatment will likely be symptomatic. I have discussed the potential side effects of Lyrica to include but not limited to dizziness, drowsiness, blurred vision, hand swelling, constipation. I will obtain the visit records from [facility]. An EMG study can help to delineate which nerve may be implicated. The peroneal nerve wraps around the fibular head. Hence, if the fibular head is unstable due to damaged ligaments, the nerve can get irritated. This can lead to numbness, tingling, burning, or just referred pain down the front of the leg and foot. Also, the S1 nerve in the low back can also send pain signals to the outside of the knee, so an irritated nerve in the low back can cause fibula head pain. 1 month follow-up I have spent 25 minutes, reviewing chart, evaluating and talking with patient and documenting. Orders: Orders NE electromyogram (EMG) Today M54.31 - Sciatica, right side, R20.2 - Paresthesia of skin Medications: New pregabalin (Lyrica) 50 mg PO BEDTIME 30 caps 0RF Coding Level of Care Code Est Pt Level 3 (92063) Diagnoses Chronic pain of right knee M25.561; G89.29 Chronicity: chronic Sciatica, right side M54.31 Right leg paresthesias R20.2
== END 2023-03-02 09:22 | disposition home or self-care (01) ==
LOC: HO.RHE 08:29
PROVIDERS: PCP Internal Medicine; Visit Provider Nurse Practitioner Family
DX: M25.561 Pain in right knee (principal); G89.29 Other chronic pain; M54.31 Sciatica, right side; R20.2 Paresthesia of skin
CPT/HCPCS: 99213

== ENCOUNTER → 2023-03-02 08:29 | Outpatient (BNVA) | payer MEDICARE, SELFPAY | PROVIDERS: PCP Internal Medicine; Visit Provider Nurse Practitioner Family | DX: M25.561 Pain in right knee (principal); G89.29 Other chronic pain; M54.31 Sciatica, right side; R20.2 Paresthesia of skin | CPT/HCPCS: 99212 ==

== ENCOUNTER 2023-03-11 09:07 | Outpatient (REF) | payer MEDICARE, SELFPAY ==
--- NOTE | 2023-03-11 09:12 | EMG_ITS ---
Right tibial and peroneal motor studies were performed. Right superficial peroneal and sural sensory studies were performed. Tibial H-reflex was obtained and paraspinal and some limb muscles were tested. 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 MD SILVER Kirk/DUSTY / [id number]
== END 2023-03-11 09:08 | disposition home or self-care (01) ==
LOC: HO.NEURO 09:07
PROVIDERS: PCP Internal Medicine; Visit Provider Nurse Practitioner Family
DX: R20.2 Paresthesia of skin (principal); M54.31 Sciatica, right side
CPT/HCPCS: 95886; 95909

== ENCOUNTER 2023-04-07 13:10 | Outpatient (AMB) | payer MEDICARE, SELFPAY ==
--- NOTE | 2023-04-07 13:27 | A.OFFVIS_ITS ---
Intake Vital Signs 04/07/23 13:33 Height 5 ft 8 in Weight 169 lb 12.095 oz BMI 25.8 BP 140/68 H Blood Pressure Location Rt brachial Position Sitting Pulse 86 Pulse Source Pulse Oximeter Temp 97.6 F Temp Source Skin Pulse Oximetry (%) 98 Oxygen Delivery Method Room Air Intake Visit Reasons: Joint Pain Intake Note: Patient last seen 12/23/22 presents today for follow up and test results. Reports worsening right leg pain Front Desk Admin Required: No Accompanied by: Self / Same As Patient Allergies pregabalin Allergy (Severe, Verified 04/07/23 13:35) Palpitations Penicillins Allergy (Intermediate, Verified 04/07/23 13:35) Diarrhea, itchy, red spots atorvastatin Adverse Reaction (Severe, Verified 04/07/23 13:35) pain HPI HPI Comments History of Present Illness Details Mr. Daniel is here for follow visit due to recurring pain to his lateral right leg, more pronunced laterally from the head of the fibula down to the ankle. He was given ibuprofen at the last visit which seemed to help but he does not want to continue to take ibuprofen. He desires to be evaluated by Orthopedic to see if surgery can help. He did go do the EMG studies. Prior Visit: Mr. Daniel is here for an urgent visit due to recurring pain to his lateral right leg, more pronunced laterally from the head of the fibula down to the ankle. He was clearing trash in the back yard and the pain recurred within a day after. He says there is no pain while sitting, but it bothers him during sleep and with walking and his foot feels numb. He rates it 8/10. Since last visit 01/19/2023, he has been to [facility] (3 days later) and [facility], because of the pain. Ultra sound was done with no adverse findings per patient. He also has tenderness to the right glutes. Prior Visit Mr. Daniel is a 67-year-old male with medical history of diabetes mellitus type 2 that comes today accompanied by female partner for evaluation of right knee pain. His right leg pain started few weeks ago after the activity of bending down and picking up leaves outside. His primary care has ordered an ultrasound will be done to rule out DVT. Also has history of right inguinal hernia repair and feel a right inguinal lump with pain. Patient all does also describe what seems like sciatica pain on his right gluteus pj. He denies red, warm swollen joints Patient denies Raynaud's phenomenon, butterfly rash on face or other rashes; denies photosensitivity - getting sick or developing a rash from being out in the sun; denies blood or froth in urine; patient denies hx of SOB, chest pain. Patient denies hx of Carditis or Pleuritis. Denies fevers, excessive fatigue, unexplained weight-loss or weight-gain, Denies: thinning hair or hair loss, hx of rashes; Denies: dry, itchy eyes, red burning eyes needing steroids to treat; dry mouth, mouth sores or ulcers; nose bleed; ringing in the ear, Denies abdominal pain, blood or mucous in stool; nausea, vomiting and diarrhea , difficulty swallowing, heartburn. Denies morning stiffness lasting more than 20 mins. Last colonoscopy was [facility] 3 years ago and was normal and next colonoscopy should be 2030. [facility] Medical History (Updated 04/07/23 @ 14:07 by Mariam Royal [facility]) Neuropathic pain of right lower extremity Right leg paresthesias Sciatica, right side Right knee pain Left knee pain Surgical History H/O colonoscopy Hx of inguinal hernia surgery Family History Father Hypertension Diabetes mellitus Renal failure (ARF), acute on chronic Mother Myocardial infarction Social History Housing: House Alcohol intake: current Alcohol intake frequency: holidays/special occasions only Alcohol type: beer Patient Tobacco Use Status: Former Tobacco user Tobacco use type: Cigarette e-Cigarette/Vaping Use: Never Used Second Hand Smoke Exposure: No service: Yes Current occupational status: retired Cognitive needs: No Hearing needs: No Vision needs: Yes (reading glasses) Review of Systems Const All systems reviewed & are unremarkable except as noted in HPI and below Physical Exam Vital Signs: Last Vital Signs Temp 97.6 F 04/07/23 13:33 Pulse 86 04/07/23 13:33 BP 140/68 H 04/07/23 13:33 Pulse Ox 98 04/07/23 13:33 Oxygen Delivery Method Room Air 04/07/23 13:33 BMI result Body Mass Index 25.8 APPEARANCE: Patient in no acute distress, groomed and nourished EYES no redness, pupils equal and reactive to light, eyelids normal HEART:? Regular rhythm, S1-S2 heard, no murmurs, rubs or gallops. LUNG:? Clear to percussion and auscultation EXTREMITIES:? No edema, no calf tenderness, normal peripheral pulses. Right leg tenderness to fibula head, Fibula head pronounced NEURO:? Oriented and alert x3.? No focal weakness.? Reflexes symmetric.? Gait is antalgic. Walks with a cane Results Reviewed Results Reviewed: December 2022 EXAMINATION: XR KNEE, RIGHT CLINICAL INFORMATION: Pain COMPARISON: None available. TECHNIQUE: Three views of the right knee. FINDINGS: No acute visible fracture or dislocation. Multicompartment arthritic changes. Mild to moderate narrowing of the medial femorotibial compartment. Enthesopathy at the quadriceps tendon insertion site. Joint spaces and alignment are otherwise maintained. Trace knee joint effusion. Soft tissues are unremarkable. Atherosclerotic calcifications are noted. XR/XR knee RT 3V IMPRESSION: 1. No acute visible fracture or dislocation. 2. Multicompartment arthritic changes with mild to moderate narrowing of the medial femorotibial compartment. 3. Trace knee joint effusion. [place] [id number] EMG / Nerve Conduction Report Signed Patient: Del Ernst MR#: [id number] : 1955 Acct:[id number] Age/Sex: 67 / M ADM Date: 03/11/23 Loc: HO.NEURO Attending Dr: Mariam BOUDREAUX Ordering Physician: Mariam Royal Date of Service: 03/11/23 Procedure(s): NE electromyogram (EMG); NE nerve conduction velocity Accession Number(s): [id number]; [id number] cc: Mariam Royal~ Right tibial and peroneal motor studies were performed. Right superficial peroneal and sural sensory studies were performed. Tibial H-reflex was obtained and paraspinal and some limb muscles were tested. 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 MD SILVER Kirk/DUSTY / [id number] Assessment & Plan Assessment & Plan (1) Right leg pain: Code(s): M79.604 - Pain in right leg (2) Neuropathic pain of right lower extremity: Code(s): M79.2 - Neuralgia and neuritis, unspecified (3) Right knee pain: Code(s): M25.561 - Pain in right knee Qualifiers: Chronicity: chronic Qualified Code(s): M25.561 - Pain in right knee; G89.29 - Other chronic pain (4) Sciatica, right side: Code(s): M54.31 - Sciatica, right side Plan The patient is here today and desires ortho referral for the right leg pain. It keeps him up at night. I discussed with him that a neurologist may be more beneficial given it its more likely a a nerve conduction problem but he desires to see an orthopedic so I will make that referral. The EMG studies report latent nerve conduction for some nerves and no response for others down the right leg. He will also discuss medication for nerve pain with his PCP. Ibuprofen helps a little but he says he does not want to take it all the time for the leg and he wants the leg fixed so he does not have to take. He says he Lyrica was gave him dizzyness. Prior Visit #Right knee pain: Mr. Daniel 67-year-old male here for follow-up evaluation of right knee pain. He does have arthritis in the knee. Per xray there is no acute visible fracture or dislocation. There is multicompartment arthritic changes, mild to moderate narrowing of the medial femorotibial compartment. Enthesopathy at the quadriceps tendon insertion site. Joint spaces and alignment are otherwise maintained. Soft tissues are unremarkable. Atherosclerotic calcifications are noted. #Right Leg Sciatica/Paresthesias: I discussed with patient today that his intermittent knee pain is likely sciatic and may have been brought on by overuse. On PE, there is mild tenderness to right gluteus muscle radiating from the lower back. Given that there is tenderness on the right gluteus muscle, the sciatica could also be responsible to for the pain at this lateral side of the r ight knee down to the hayden. I still think patient will benefit from physical therapy as prescribed at last visit. I will also do an EMG study to assess the nerve conduction on the right leg. The patient agrees with this plan. He had put a hold on PT due to some personal problems that resulted in him having to leave his home. He now resides in [place] with this sister so it will be a challenge to get going with PT. For the time being, I will prescribe him Lyrica 50mg at bedtime that can help with sleep. I will also consider a corticosteroid injection at next visit if things have not improved. I did discussed with patient that recurrence can be permanent and treatment will likely be symptomatic. I have discussed the potential side effects of Lyrica to include but not limited to dizziness, drowsiness, blurred vision, hand swelling, constipation. I will obtain the visit records from [facility]. An EMG study can help to delineate which nerve may be implicated. The peroneal nerve wraps around the fibular head. Hence, if the fibular head is unstable due to damaged ligaments, the nerve can get irritated. This can lead to numbness, tingling, burning, or just referred pain down the front of the leg and foot. Also, the S1 nerve in the low back can also send pain signals to the outside of the knee, so an irritated nerve in the low back can cause fibula head pain. He will call the office for any needed follow-up: I have spent 20 minutes, reviewing chart, evaluating and talking with patient and documenting. Orders: Referrals Orthopedics Referral M79.604 - Pain in right leg Coding Level of Care Code Est Pt Level 3 (24902) Diagnoses Right leg pain M79.604 Neuropathic pain of right lower extremity M79.2 Chronic pain of right knee M25.561; G89.29 Chronicity: chronic Sciatica, right side M54.31
[2023-04-07 13:33] VITALS: BP 140/68; PULSE 86; TEMP 36.4; O2SAT 98; BMI 25.8
== END 2023-04-07 13:54 | disposition home or self-care (01) ==
PROVIDERS: PCP Internal Medicine; Visit Provider Nurse Practitioner Family
DX: M79.604 Pain in right leg (principal); M79.2 Neuralgia and neuritis, unspecified; M25.561 Pain in right knee; G89.29 Other chronic pain; M54.31 Sciatica, right side
CPT/HCPCS: 99213

== ENCOUNTER → 2023-04-07 13:10 | Outpatient (BNVA) | payer MEDICARE, SELFPAY | PROVIDERS: PCP Internal Medicine; Visit Provider Nurse Practitioner Family | DX: M79.604 Pain in right leg (principal); M25.561 Pain in right knee; M79.2 Neuralgia and neuritis, unspecified; M54.31 Sciatica, right side; G89.29 Other chronic pain | CPT/HCPCS: 99212 ==

== ENCOUNTER 2023-04-16 08:32 | Outpatient (REF) | payer MEDICARE, SELFPAY ==
[2023-04-16 10:02] LABS: Alanine Aminotransferase 12 U/L (0-40); Albumin Level 4.2 g/dL (3.5-5.0); Alkaline Phosphatase 41 U/L (39-117); Anion Gap 9 (12-20); Aspartate Amino Transferase 14 U/L (5-37); Bilirubin Total 0.7 mg/dL (0.0-1.0); Blood Urea Nitrogen 18 mg/dL (9-16); Calcium 9.7 mg/dL (8.4-10.2); Carbon Dioxide 30 mmol/L (22-29); Chloride 108 mmol/L (96-108); Cholesterol 147 mg/dL (<200); Estimated Glomerular Filt Rate > 60; Glucose Fasting 117 mg/dL (60-99); HDL Cholesterol 43 mg/dL (>40); LDL Cholesterol Calculated 87 mg/dL (<100); Potassium 4.4 mmol/L (3.3-5.1); Sodium 143 mmol/L (135-145); Triglycerides 89 mg/dL (<150)
[2023-04-16 10:18] LABS: Vitamin D 25-OH Total 42.7 ng/mL (>30)
[2023-04-16 11:22] LABS: Creatinine Urine 92.09 mg/dL; Microalbum/Creatinine Ratio Ur 6.5 ug/mg cr (<30)
== END 2023-04-16 08:33 | disposition home or self-care (01) ==
LOC: HO.LAB 08:32
PROVIDERS: PCP Internal Medicine; Visit Provider Internal Medicine
DX: Z00.00 Encounter for general adult medical examination without abnormal findings (principal); E78.5 Hyperlipidemia, unspecified; E55.9 Vitamin D deficiency, unspecified; E11.9 Type 2 diabetes mellitus without complications
CPT/HCPCS: 36415; 80053; 80061; 82043; 82306; 82570

== ENCOUNTER 2023-04-28 09:43 | Outpatient (AMB) | payer MEDICARE, SELFPAY ==
[2023-04-28 09:51] VITALS: BP 130/62; BMI 25.4
--- NOTE | 2023-04-28 09:51 | MHC.PC.OV ---
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 Accompanied by: Self / Same As Patient Allergies pregabalin Allergy (Severe, Verified 04/28/23 10:06) Palpitations Penicillins Allergy (Intermediate, Verified 04/28/23 10:06) Diarrhea, itchy, red spots atorvastatin Adverse Reaction (Severe, Verified 04/28/23 10:06) pain Medication List - Last Reconciled 04/28/23 by Darcy Mike MD blood sugar diagnostic (FreeStyle Lite Strips) Use 1 test strip once a day cholecalciferol (vitamin D3) 50 mcg PO DAILY 90 days ibuprofen 800 mg PO Q8H lancets (FreeStyle Lancets) Use 1 lancet once a day lisinopril 20 mg PO DAILY 90 days metformin 1,000 mg PO BID 90 days pantoprazole 40 mg PO DAILY PRN simvastatin 10 mg PO BEDTIME 90 days tamsulosin 0.4 mg PO DAILY 90 days Tobacco use date assessed: 04/28/23 Fall risk assessment: 1 Fall in past year Last assessed Fall Risk: 04/28/23 Dental Screening Dental Screen Date: 04/28/23 Did you have a dental visit in the last 12 months?: No Did you have a dental problem in the last 6 months where you did not have access to dental care?: No Was dental information given to patient?: Patient has dentist HPI HPI Comments History of Present Illness Details This is a 67-year-old male with diabetes mellitus type 2, hypertension, hyperlipidemia, GERD and sensory neuropathy of right lower extremity that comes today for follow-up on his conditions. A1c within goal. Blood pressure stable. LDL not on goal and I will increase simvastatin from 10 mg to 20 mg. GERD stable with PPIs. Still complains of right lower leg pain. Had an ultrasound in [facility] ruling out blood clot. Had a nerve conduction study showing [id number] neuropathy. I will start him on gabapentin at bedtime and he is aware that he can cause addiction and sedation. [facility] Medical History Neuropathic pain of right lower extremity Right leg paresthesias Sciatica, right side Right knee pain Left knee pain Surgical History H/O colonoscopy Hx of inguinal hernia surgery Family History Father Hypertension Diabetes mellitus Renal failure (ARF), acute on chronic Mother Myocardial infarction Social History Housing: House Alcohol intake: current Alcohol intake frequency: holidays/special occasions only Alcohol type: beer Patient Tobacco Use Status: Former Tobacco user Tobacco use type: Cigarette e-Cigarette/Vaping Use: Never Used Second Hand Smoke Exposure: No service: Yes Current occupational status: retired Cognitive needs: No Hearing needs: No Vision needs: Yes (reading glasses) Questionnaire PHQ-9 Over the last 2 weeks, how often have you been bothered by any of the following problems? 1. Little interest or pleasure in doing things: not at all 2. Feeling down, depressed, or hopeless: more than half the days 3. Trouble falling or staying asleep, or sleeping too much: more than half the days 4. Feeling tired or having little energy: more than half the days 5. Poor appetite or overeating: more than half the days 6. Feeling bad about yourself - or that you are a failure or have let yourself or your family down: several days 7. Trouble concentrating on things, such as reading the newspaper or watching television: not at all 8. Moving or speaking so slowly that other people could have noticed. Or the opposite - being so fidgety or restless that you have been moving around a lot more than usual: not at all 9. Thoughts that you would be better off or of hurting yourself in some way: not at all Total score: 9 Depression Screening Interpretation: Positive Depression Screening Follow-up: Existing condition Depression Screening Done: Yes 61884 - PHQ-9 Billing: Yes Source: Developed by Drs. Sandor Bowling, Saundra Nye, Petar Larry and colleagues, with an educational damian from [employer]. Thrive Questionnaire Date Thrive assessed: 04/28/23 I am a: Patient What is your living situation today?: I have a steady place to live Within the past 12 months, did the food you bought not last and you didn't have the money to get more?: Never true Within the past 12 months, did you worry whether your food would run out before you got money to buy more?: Never true Do you have trouble paying for medicines?: No Do you have trouble getting transportation to medical appointments?: No Do you have trouble paying your heating and electricity bill?: No Do you have trouble taking care of your child, family member or friend?: No Do you have trouble with day-to-day activities such as bathing, preparing meals, shopping, managing finances, etc.?: No Are you currently unemployed and looking for a job?: No Are you interested in more education?: No Please select the resources that you would like help with: None Currently or been in a relationship where the following occur: no concerns reported THRIVE Score: 0 AUDIT C Alcohol Use Questionnaire (AUDIT-C) 1. How often do you have a drink containing alcohol?: Never Total Score: 0 MJ-7 AMB Questionnaire MJ-7 Date MJ - 7 assessed: 04/28/23 Feeling nervous, anxious, or on edge: 0 = Not at all Not being able to stop or control worryin = Not at all Worrying too much about different things: 0 = Not at all Trouble relaxin = Not at all Being so restless that it is hard to sit still: 0 = Not at all Becoming easily annoyed or irritable: 0 = Not at all Feeling afraid as if something awful might happen: 0 = Not at all Total MJ-7 score (0-4 normal; 5-9 mild; 10-14 moderate; 15-21 severe): 0 Source: Developed by Drs. Sandor Bowling, Saundra Nye, Petar Larry and colleagues, with an educational damian from [employer]. MJ-7 Assessment Billing MJ-7 Assessment Tool: MJ-7 Assessment 10145 Review of Systems Const All systems reviewed & are unremarkable except as noted in HPI and below Eyes Reports no additional complaints, Denies change in vision and Denies other visual disturbances Card Denies chest pain at rest, Denies chest pain with activity, Denies edema, Denies irregular heart rhythm, Denies claudication, Denies dyspnea, Denies dyspnea on exertion, Denies orthopnea, Denies paroxysmal nocturnal dyspnea and Denies slow heart rate Resp Denies cough, Denies dyspnea and Denies dyspnea on exertion GI Denies abdominal pain, Denies change in bowel habits, Denies excessive flatus, Denies nausea and Denies vomiting Denies urinary hesitancy, Denies urinary incontinence and Denies urinary urgency Musc Denies abnormal gait, Denies atrophy, Denies deformity and Denies limited range of motion Skin/Breast Denies bleeding lesions, Denies changing lesions and Denies rash Neuro Denies abnormal gait, Denies behavioral changes and Denies lack of coordination Psych Denies behavioral changes Physical exam (Primary Care) Vital Signs: Last Vital Signs BP 130/62 04/28/23 09:51 BMI result Body Mass Index 25.4 Tobacco/Smoking Status: Tobacco use Status Tobacco use date assessed 04/28/23 04/28/23 09:59 Patient Tobacco Use Status Former Tobacco user 04/28/23 09:59 Tobacco use type Cigarette 04/28/23 09:59 e-Cigarette/Vaping Use Never Used 04/28/23 09:59 PHQ-9: PHQ-9 Score PHQ-9: Total score 9 04/28/23 10:10 Depression Screening Interpretation: Positive Depression Screening Follow-up: Existing condition Thrive Assessment: Date of Thrive Assessment Date Thrive assessed 04/28/23 04/28/23 09:59 Currently or been in a relationship where the following occur: no concerns reported Eyes General: appearance normal, both eyes and all related structures Eyelids: Yes eyelids normal Conjunctivae: conjunctivae normal Neck Neck: Yes normal visual inspection and Yes supple Resp Effort & Inspection: normal respiratory effort Auscultation: clear to auscultation bilaterally Cardio Jugular venous distension: no JVD Rate: regular rate Rhythm: regular rhythm Heart sounds: S1 normal heart sound present and S2 normal heart sound present Extrem General: Yes full ROM Results AMB Hemoglobin A1c AMB Hemoglobin A1c 5.8 % Last Edit by VALDO Santo on 04/28/23 10:05 Results Reviewed Results Reviewed: Laboratory Last Values Hgb A1c (Clinic) 5.8 % (4.0-6.0) 04/28/23 09:46 Assessment and Plan Assessment & Plan (1) Essential (primary) hypertension: Code(s): I10 - Essential (primary) hypertension (2) Diabetes type 2, controlled: Onset Date: ~2005 Code(s): E11.9 - Type 2 diabetes mellitus without complications Plan: Continue metformin. A1c goal is equal or less than 7% (3) Hyperlipidemia: Code(s): E78.5 - Hyperlipidemia, unspecified Plan: Increase simvastatin from 10 mg to 20 mg. LDL goal is less than 70. (4) GERD (gastroesophageal reflux disease): Code(s): K21.9 - Gastro-esophageal reflux disease without esophagitis Plan: Continue PPIs (5) Neuropathic pain of right lower extremity: Code(s): M79.2 - Neuralgia and neuritis, unspecified Plan: Start gabapentin at bedtime. Referred to neurology. Orders: Orders Lipid Panel 4 Months E78.5 - Hyperlipidemia, unspecified Microalbumin, Random (w Creat) 4 Months E11.9 - Type 2 diabetes mellitus without complications Comprehensive [place]. Panel Fast 4 Months E11.9 - Type 2 diabetes mellitus without complications AMB Hemoglobin A1c Today E11.9 - Type 2 diabetes mellitus without complications Vitamin D 25-OH Total 4 Months E55.9 - Vitamin D deficiency, unspecified Referrals Neurology Referral M79.2 - Neuralgia and neuritis, unspecified Medications: New gabapentin 100 mg PO BEDTIME 30 caps 2RF 30 days simvastatin 20 mg PO BEDTIME 90 tabs 0RF 90 days Discontinued simvastatin Discontinued Reason: No Longer Medically Relevant 10 mg PO BEDTIME 90 days 90 tabs 1RF E78.5 - Hyperlipidemia, unspecified Coding Level of Care Code Est Pt Level 4 (60684) Diagnoses Essential (primary) hypertension I10 Diabetes type 2, controlled E11.9 Hyperlipidemia E78.5 GERD (gastroesophageal reflux disease) K21.9 Neuropathic pain of right lower extremity M79.2 Additional Codes MJ-7 Assessment Billing - MJ-7 Assessment Tool: MJ-7 Assessment 39420 ([id number]) Time Spent (min) 25
== END 2023-04-28 11:52 | disposition home or self-care (01) ==
PROVIDERS: PCP Internal Medicine; Visit Provider Internal Medicine
DX: E11.9 Type 2 diabetes mellitus without complications (principal); I10 Essential (primary) hypertension; E78.5 Hyperlipidemia, unspecified; K21.9 Gastro-esophageal reflux disease without esophagitis; M79.2 Neuralgia and neuritis, unspecified
CPT/HCPCS: 83036; 99214

== ENCOUNTER 2023-12-27 08:39 | Outpatient (AMB) | payer MEDICARE, SELFPAY ==
--- NOTE | 2023-12-27 08:47 | MHC.PC.OV ---
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 Accompanied by: Self / Same As Patient Allergies pregabalin Allergy (Severe, Verified 12/27/23 09:03) Palpitations Penicillins Allergy (Intermediate, Verified 12/27/23 09:03) Diarrhea, itchy, red spots atorvastatin Adverse Reaction (Severe, Verified 12/27/23 09:03) pain Medication List - Last Reconciled 12/27/23 by Darcy Mike MD blood sugar diagnostic (FreeStyle Lite Strips) Use 1 test strip once a day lancets (FreeStyle Lancets) Use 1 lancet once a day lisinopril 20 mg PO DAILY 90 days metformin 1,000 mg PO BID 90 days simvastatin 20 mg PO BEDTIME 90 days tamsulosin 0.4 mg PO DAILY 90 days Tobacco use date assessed: 04/28/23 Dental Screening Dental Screen Date: 04/28/23 HPI HPI Comments History of Present Illness Details This is a 68-year-old male with diabetes mellitus type 2 with polyneuropathy that comes for his physical exam. The symptoms of neuropathy in the right leg has subside and he does not need gabapentin anymore. Needs diabetic eye exam and will be referred. A1c within goal. Colonoscopy done 2019 and next colonoscopy should be 20 30. No chest pain or shortness on breath. No acute complaints. [facility] Medical History (Updated 12/27/23 @ 09:22 by Darcy Mike MD) Neuropathic pain of right lower extremity Right leg paresthesias Sciatica, right side Right knee pain Left knee pain Surgical History H/O colonoscopy Hx of inguinal hernia surgery Family History Father Hypertension Diabetes mellitus Renal failure (ARF), acute on chronic Mother Myocardial infarction Social History (Updated 12/27/23 @ 09:11 by Darcy Mike MD) Housing: House Alcohol intake: current Alcohol intake frequency: holidays/special occasions only Alcohol type: beer Patient Tobacco Use Status: Never used Tobacco e-Cigarette/Vaping Use: Never Used Second Hand Smoke Exposure: No service: Yes Current occupational status: retired Cognitive needs: No Hearing needs: No Vision needs: Yes (reading glasses) Questionnaire PHQ-9 Over the last 2 weeks, how often have you been bothered by any of the following problems? 1. Little interest or pleasure in doing things: not at all 2. Feeling down, depressed, or hopeless: several days 3. Trouble falling or staying asleep, or sleeping too much: several days 4. Feeling tired or having little energy: several days 5. Poor appetite or overeating: not at all 6. Feeling bad about yourself - or that you are a failure or have let yourself or your family down: not at all 7. Trouble concentrating on things, such as reading the newspaper or watching television: not at all 8. Moving or speaking so slowly that other people could have noticed. Or the opposite - being so fidgety or restless that you have been moving around a lot more than usual: not at all 9. Thoughts that you would be better off or of hurting yourself in some way: not at all Total score: 3 Depression Screening Interpretation: Positive Depression Screening Follow-up: Existing condition and Follow-up Visit Requested Depression Screening Done: Yes 87228 - PHQ-9 Billing: Yes Source: Developed by Drs. Sandor Bowling, Saundra Nye, Petar Larry and colleagues, with an educational damian from [employer]. Thrive Questionnaire Date Thrive assessed: 12/27/23 I am a: Patient What is your living situation today?: I have a steady place to live Within the past 12 months, did the food you bought not last and you didn't have the money to get more?: Never true Within the past 12 months, did you worry whether your food would run out before you got money to buy more?: Never true Do you have trouble paying for medicines?: No Do you have trouble getting transportation to medical appointments?: No Do you have trouble paying your heating and electricity bill?: No Do you have trouble taking care of your child, family member or friend?: No Do you have trouble with day-to-day activities such as bathing, preparing meals, shopping, managing finances, etc.?: No Are you currently unemployed and looking for a job?: No Are you interested in more education?: No Please select the resources that you would like help with: None Currently or been in a relationship where the following occur: No concerns reported THRIVE Score: 0 AUDIT C Alcohol Use Questionnaire (AUDIT-C) 1. How often do you have a drink containing alcohol?: Never Total Score: 0 Score Reviewed/Action Taken: No MJ-7 AMB Questionnaire MJ-7 Date MJ - 7 assessed: 12/27/23 Feeling nervous, anxious, or on edge: 0 = Not at all Not being able to stop or control worryin = Not at all Worrying too much about different things: 0 = Not at all Trouble relaxin = Not at all Being so restless that it is hard to sit still: 0 = Not at all Becoming easily annoyed or irritable: 0 = Not at all Feeling afraid as if something awful might happen: 0 = Not at all Total MJ-7 score (0-4 normal; 5-9 mild; 10-14 moderate; 15-21 severe): 0 Source: Developed by Drs. Sandor Bowling, Saundra Nye, Petar Larry and colleagues, with an educational damian from [employer]. MJ-7 Assessment Billing MJ-7 Assessment Tool: MJ-7 Assessment 49258 Review of Systems Const All systems reviewed & are unremarkable except as noted in HPI and below Card Denies chest pain at rest, Denies chest pain with activity, Denies edema, Denies irregular heart rhythm, Denies claudication, Denies dyspnea, Denies dyspnea on exertion, Denies orthopnea, Denies paroxysmal nocturnal dyspnea and Denies slow heart rate Resp Denies cough, Denies dyspnea and Denies dyspnea on exertion GI Denies abdominal pain, Denies change in bowel habits, Denies excessive flatus, Denies nausea and Denies vomiting Denies urinary hesitancy, Denies urinary incontinence and Denies urinary urgency Neuro Denies behavioral changes, Denies confusion and Denies lack of coordination Psych Denies behavioral changes and Denies confusion Physical exam (Primary Care) Vital Signs: Last Vital Signs BP 126/60 12/27/23 08:52 BMI result Body Mass Index 26.9 Tobacco/Smoking Status: Tobacco use Status Tobacco use date assessed 04/28/23 12/27/23 08:50 Patient Tobacco Use Status Former Tobacco user 12/27/23 08:50 Tobacco use type Cigarette 12/27/23 08:50 e-Cigarette/Vaping Use Never Used 12/27/23 08:50 PHQ-9: PHQ-9 Score PHQ-9: Total score 3 12/27/23 08:50 Depression Screening Interpretation: Positive Depression Screening Follow-up: Existing condition and Follow-up Visit Requested Thrive Assessment: Date of Thrive Assessment Date Thrive assessed 12/27/23 12/27/23 08:50 Currently or been in a relationship where the following occur: No concerns reported Const General: No confusion Orientation/consciousness: patient oriented x3 and No confusion HENMT Head: Yes normal to inspection, Yes normocephalic and Yes atraumatic Ears: external ears normal Eyes General: appearance normal, both eyes and all related structures Eyelids: Yes eyelids normal Conjunctivae: conjunctivae normal Neck Neck: Yes normal visual inspection and Yes supple Resp Effort & Inspection: normal respiratory effort Auscultation: clear to auscultation bilaterally Cardio Jugular venous distension: no JVD Rate: regular rate Rhythm: regular rhythm Heart sounds: S1 normal heart sound present and S2 normal heart sound present GI Inspection: Yes normal to inspection Palpation (GI): Soft to palpation and nontender Auscultation: normal bowel sounds Skin General skin exam: no rashes or lesions noted Neuro General: patient oriented x3, no focal motor deficits and No confusion Extrem General: Yes full ROM Psych Appearance: grossly normal Office Procedures Flu Questionnaire Does the patient have a severe egg allergy?: No Results AMB Hemoglobin A1c AMB Hemoglobin A1c 5.9 % Last Edit by VALDO Santo on 12/27/23 09:00 Immunizations Fluarix Triv [id number] (PF) 45 mcg (15 mcg x 3)/0.5 mL IM syringe Performing Provider: Darcy Mike MD [facility] Documented (not given) by: VALDO Santo on 12/27/23 08:57 Reason Not Given: Patient Refused Results Reviewed Results Reviewed: Laboratory Last Values Hgb A1c (Clinic) 5.9 % (4.0-6.0) 12/27/23 08:47 Coding Level of Care Code Est Pt Prev Care >65y(49862) Diagnoses Physical exam Z00.00 Diabetes mellitus with diabetic polyneuropathy, without long-term current use of insulin E11.42 Additional Codes PHQ-9 - 70403 - PHQ-9 Billing: Yes ([id number]) MJ-7 Assessment Billing - MJ-7 Assessment Tool: MJ-7 Assessment 43822 ([id number]) Time Spent (min) 31 Assessment & Plan Assessment & Plan (1) Physical exam: Code(s): Z00.00 - Encounter for general adult medical examination without abnormal findings Category: Medical Plan: Repeat in a year. (2) Diabetes mellitus with diabetic polyneuropathy, without long-term current use of insulin: Code(s): E11.42 - Type 2 diabetes mellitus with diabetic polyneuropathy Category: Medical Plan: Decrease metformin. A1c goal is equal or less than 7%. Orders: Orders Lipid Panel 4 Months E78.5 - Hyperlipidemia, unspecified AMB Hemoglobin A1c Today E11.9 - Type 2 diabetes mellitus without complications Influenza [id number] Immunization Today Z23 - Encounter for immunization Microalbumin, Random (w Creat) 4 Months R80.9 - Proteinuria, unspecified Comprehensive [place]. Panel Fast 4 Months E11.9 - Type 2 diabetes mellitus without complications Referrals Ophthalmology Referral E11.9 - Type 2 diabetes mellitus without complications Medications: New simvastatin 10 mg PO BEDTIME 90 days 90 tabs 1RF metformin 500 mg PO BID 90 days 180 tabs 1RF Refilled tamsulosin 0.4 mg PO DAILY 90 days 90 caps 0RF N40.1 - Benign prostatic hyperplasia with lower urinary tract symptoms, R35.1 - Nocturia lisinopril 20 mg PO DAILY 90 days 90 tabs 3RF I10 - Essential (primary) hypertension Discontinued simvastatin Discontinued Reason: Patient Completed Course 20 mg PO BEDTIME 90 days 90 tabs 0RF metformin Discontinued Reason: Patient Completed Course 1,000 mg PO BID 90 days 180 tabs 0RF E11.9 - Type 2 diabetes mellitus without complications
[2023-12-27 08:52] VITALS: BP 126/60; BMI 26.9
== END 2023-12-27 09:19 | disposition home or self-care (01) ==
PROVIDERS: PCP Internal Medicine; Visit Provider Internal Medicine
DX: Z00.00 Encounter for general adult medical examination without abnormal findings (principal); E11.42 Type 2 diabetes mellitus with diabetic polyneuropathy; Z23 Encounter for immunization

== ENCOUNTER → 2023-12-27 08:39 | Outpatient (BNVA) | payer MEDICARE, SELFPAY | PROVIDERS: PCP Internal Medicine; Visit Provider Internal Medicine | DX: Z00.00 Encounter for general adult medical examination without abnormal findings (principal); E11.42 Type 2 diabetes mellitus with diabetic polyneuropathy; Z28.21 Immunization not carried out because of patient refusal | CPT/HCPCS: 83036; 90471; 96127; 99397 ==